=== PATIENT | male | born 1955 | race Caucasian/White ===

== ENCOUNTER 2018-01-14 15:38 | Outpatient (POV) ==
[2012-11-11 12:22] VITALS: TEMP 97.2
[2012-11-11 13:42] VITALS: BP 110/76
== END 2018-01-14 17:00 ==
LOC: OUTPT 15:38
PROVIDERS: ATTEND Otolaryngology
DX: H91.90 Unspecified hearing loss, unspecified ear (principal)

== ENCOUNTER 2018-03-26 13:43 | Outpatient (POV) ==
[2012-11-11 12:22] VITALS: TEMP 97.2
[2012-11-11 13:42] VITALS: BP 110/76
== END 2018-03-26 17:00 ==
LOC: OUTPT 13:43
PROVIDERS: ATTEND Otolaryngology
DX: H91.90 Unspecified hearing loss, unspecified ear (principal)
CPT/HCPCS: 92553; 92567

== ENCOUNTER 2018-04-09 14:57 | Outpatient (CLI) ==
[2012-11-11 12:22] VITALS: TEMP 97.2
[2012-11-11 13:42] VITALS: BP 110/76
== END 2018-04-09 14:58 | disposition home or self-care (01) ==
LOC: RHC-LAB 14:57
PROVIDERS: ATTEND Otolaryngology
DX: H66.91 Otitis media, unspecified, right ear (principal)
CPT/HCPCS: 87070; 87186